=== PATIENT | male | born 1950 ===

== ENCOUNTER → 2017-02-24 | Outpatient (CLI) | payer OTHER ==
--- NOTE | 2017-02-24 15:59 | KCIC ---
3 view right knee HISTORY: Right knee sprain and swelling for 6 months. Diminished flexion. FINDINGS: Generalized bone demineralization. No evidence of acute fracture. No aggressive bone destruction. Mild degenerative changes with small osteophytes, mainly at the medial joint compartment. No evidence of significant soft tissue abnormality. IMPRESSION: No acute fracture or dislocation. Mild primary osteoarthritis. Electronically signed by: Hemant Hickman MD (02/24/2017 3:56 PM)
== END | disposition home or self-care (01) ==
LOC: KCIC 14:19
PROVIDERS: ATTEND Family Medicine
DX: M17.11 Unilateral primary osteoarthritis, right knee (principal); S83.91XA Sprain of unspecified site of right knee, initial encounter; X58.XXXA Exposure to other specified factors, initial encounter; Y93.89 Activity, other specified; Y92.89 Other specified places as the place of occurrence of the external cause; Y99.8 Other external cause status
CPT/HCPCS: 73562

== ENCOUNTER → 2017-05-22 | Outpatient (CLI) | payer OTHER ==
--- NOTE | 2017-05-22 17:41 | RAD ---
MR of the right shoulder Indication: Right shoulder pain for 2 months. Swelling at the AC joint area. No known injury. Technique: Standard multiplanar sequences are obtained. Findings: Acromioclavicular joint: Mild primary osteoarthritis with undersurface osteophytes. No joint separation. No evidence of acute coracoclavicular ligament rupture. Rotator cuff: Mild thickening and signal compatible with tendinosis. There is a small linear tear at the far anterior supraspinatus footprint violating the undersurface, at least 70 percent deep. This measures less than 1 cm AP diameter. No full-thickness or retracted rotator cuff tear. Trace fluid in the subdeltoid bursa. Glenohumeral cartilage: Mild primary osteoarthritis. Fluid: No significant joint effusion. Labrum: Tear of the superior labrum. Biceps tendon: Intact Bones: Mild cystic changes at the anterior greater tuberosity. Soft tissue: There is soft tissue and intramuscular edema about the AC joint, and within the anterior upper deltoid muscle. Findings could represent a contusion or strain from trauma. There is no history of injury, therefore inflammatory etiology is possible with myositis. Impression: 1. Rotator cuff tendinosis. Small linear undersurface tear of the anterior supraspinatus footprint. 2. Superior labral tear. 3. Acute soft tissue and intramuscular edema at the AC joint and anterior deltoid muscle, suggesting a strain or contusion. Given the lack of a trauma history, this could represent nonspecific inflammatory etiology or myositis. Electronically signed by: Hemant Hickman MD (05/22/2017 5:37 PM) [facility]
== END | disposition home or self-care (01) ==
LOC: MRI 14:38
PROVIDERS: ATTEND Nurse Practitioner Family
DX: S43.431A Superior glenoid labrum lesion of right shoulder, initial encounter (principal); M19.011 Primary osteoarthritis, right shoulder; R91.8 Other nonspecific abnormal finding of lung field; X58.XXXA Exposure to other specified factors, initial encounter; Y93.89 Activity, other specified; Y92.89 Other specified places as the place of occurrence of the external cause; Y99.8 Other external cause status
CPT/HCPCS: 73221